=== PATIENT | female | born 1980 ===

== ENCOUNTER 2022-04-22 19:00 | Emergency (ER) | payer OTHER ==
[~2022-04-22 19:00] MED LIST: Iopamidol-370 76% 500 ML 1 ML ONE
[2022-04-22] MEDS ORDERED: Ondansetron PF 4 MG/2 ML Vial ONE (19:05)
[2022-04-22] MEDS ORDERED: Morphine 4 MG/ML VIAL ONE (19:05)
[2022-04-22] MEDS ORDERED: Fentanyl 100 MCG/2 ML VIAL ONE (19:06)
== END 2022-04-22 20:40 | disposition home or self-care (01) ==
LOC: ERS 19:00
DX: S20.219A Contusion of unspecified front wall of thorax, initial encounter (principal); V89.2XXA Person injured in unspecified motor-vehicle accident, traffic, initial encounter
CPT/HCPCS: 70450; 71260; 72125; 74177; 96374; 96375; J2270; J2405; J3010; Q9967